=== PATIENT | female | born 1970 | race Caucasian/White ===

== ENCOUNTER 2023-08-17 10:58 | Emergency (ER) | payer OTHER ==
[~2023-08-17] VITALS: Ht 160 cm; Wt 70.3 kg
[2023-08-17 11:46] LABS: BASO % 0.4 % (0.0-1.0); EOS # 0.1 10*3/uL (0.0-0.4); EOS % 0.8 % (1.0-4.0); HEMATOCRIT 38.1 % (37.0-47.0); LYMPH # 1.5 10*3/uL (1.3-4.4); MEAN CELL VOLUME 92.9 fl (81.0-99.0); MEAN CORPUSCULAR HGB CONC 34.4 g/dl (33.0-37.0); MONO # 0.6 10*3/uL (0.1-1.0); MONO % 8.2 % (3.0-9.0); NEUT # 5.2 10*3/uL (2.3-7.9); NEUT % 70.5 % (47.0-73.0); PLATELET COUNT AUTOMATED 314 10*3/uL (130-400); RED CELL DISTRI WIDTH 12.9 % (0-14.5); WHITE BLOOD COUNT 7.3 10*3/uL (4.8-10.8)
[2023-08-17 12:03] LABS: ACT PARTIAL THROMBO TIME 28.7 SECONDS (20.0-32.1)
[2023-08-17 12:10] LABS: ALKALINE PHOSPHATASE 52 U/L (46-116); BUN 10 mg/dl (9-23); CHLORIDE 104 mmol/L (98-107); POTASSIUM 3.6 mmol/L (3.4-5.1); SGPT/ALT 12 U/L (5-49); TOTAL PROTEIN 8.1 gm/dL (6.0-8.0)
[2023-08-17] MEDS ORDERED: FAMOTIDINE40 MG PO (15:22)
== END 2023-08-17 15:35 | disposition home or self-care (01) ==
LOC: ED 10:58
PROVIDERS: Family Medicine
DX: R07.89 Other chest pain (principal)